=== PATIENT | female | born 1980 ===

== ENCOUNTER 2021-04-02 06:00 | Day surgery (SDC) | payer OTHER ==
[2021-04-02] MEDS ORDERED: CARAFATE1 GM/10 ML PO (08:04)
[2021-04-02] MEDS ORDERED: NEXIUM 24HR20 MG PO (08:04)
== END 2021-04-02 09:20 | disposition home or self-care (01) ==
LOC: AMB-ENDOS 06:00
PROVIDERS: ATTEND Surgery
DX: K29.60 Other gastritis without bleeding (principal); Z20.822 Contact with and (suspected) exposure to COVID-19